=== PATIENT | male | born 1995 | race Two or more races ===

== ENCOUNTER 2025-05-22 20:41 | Inpatient (IN) | payer MEDICAID, OTHER ==
[~2025-05-22] VITALS: Ht 185.4 cm; Wt 88.8 kg
--- NOTE | 2025-05-22 21:08 | ED.PDOC ---
Psychiatric HPI Comments 29 y/o M, with PMHx of substance abuse presents to the ED for CC of withdrawal symptoms. Patient states, he is withdrawing from Fentanyl; reports last usage to have been on 05/16/25. Patient endorses symptoms of body-aches, chills, and auditory hallucinations in relation. Patient denies tremors, nausea, vomiting, abdominal pain, or visual hallucinations. No other symptoms or modifying factors are present at this time. Chief Complaint: Withdrawal Time Seen by MD: 21:00 Reviewed Notes: Nurses Notes, Medications, Allergies Information Source: Patient Mode of Arrival: Ambulatory Severity of Pain: None Severity of Mental Status: Moderate Severity of Symptoms: Moderate Timing: Days Duration: Since onset Circumstance: Withdrawal Symptoms Current substance abuse: Other (fentanyl) Quality: Hallucinations Associated signs and symptoms: Hallucinations Past Medical History PAST MEDICAL HISTORY: Denies Surgical History: Denies all surgeries Family History Family History: Unknown Social History Smoker: Non-Smoker Alcohol: Denies ETOH Use Drugs: Other (fentanyl) Lives In: Home Constitutional: reports: chills; denies: diaphoresis, fatigue, fever, malaise, sweats, weakness, others EENTM: denies: blurred vision, double vision, ear bleeding, ear discharge, ear drainage, ear pain, ear ringing, eye pain, eye redness, hearing loss, mouth pain, mouth swelling, nasal discharge, nose bleeding, nose congestion, nose pain, photophobia, tearing, throat pain, throat swelling, voice changes, others Respiratory: denies: cough, hemoptysis, orthopnea, SOB at rest, shortness of breath, SOB with excertion, stridor, wheezing, others Cardiovascular: denies: chest pain, dizzy spells, diaphoresis, Dyspnea on exertion, edema, irregular heart beat, left arm pain, lightheadedness, palpitations, PND, syncope, others Gastrointestinal: denies: abdomen distended, abdominal pain, blood streaked bowels, constipated, diarrhea, dysphagia, difficulty swallowing, hematemesis, melena, nausea, poor appetite, poor fluid intake, rectal bleeding, rectal pain, vomiting, others Genitourinary: denies: burning, dysuria, flank pain, frequency, hematuria, incontinence, penile discharge, penile sore, pain, testicle pain, testicle swelling, urgency, others Neurological: denies: dizziness, fainting, headache, left sided numbness, left sided weakness, numbness, paresthesia, pre-existing deficit, right sided numbness, right sided weakness, seizure, speech problems, tingling, tremors, weakness, others Musculoskeletal: reports: others (body-aches); denies: back pain, gout, joint pain, joint swelling, muscle pain, muscle stiffness, neck pain Integumetry: denies: bruises, change in color, change in hair/nails, dryness, laceration, lesions, lumps, rash, wounds, others Allergic/Immunocompromised: denies: Difficulty Healing, Frequent Infections, Hives, Itching, others Hematologic/Lymphatic: denies: anemia, blood clots, easy bleeding, easy bruising, swollen glands, others Endocrine: denies: excessive hunger, excessive sweating, excessive thirst, excessive urination, flushing, intolerance to cold, intolerance to heat, unex plained weight gain, unexplained weight loss, others Psychiatric: denies: anxiety, bipolar disorder, depression, hopeless, panic disorder, schizophrenia, sleepless, suicidal, others All Other Systems: Reviewed and Negative Physical Exam General Appearance: No Apparent Distress, Other (anxious appearing) HEENT: Normal ENT Inspection, Pharynx Normal Neck: Full Range of Motion, Non-Tender, Normal, Normal Inspection Respiratory: Chest Non-Tender, Lungs Clear, No Accessory Muscle Use, No Respiratory Distress, Normal Breath Sounds Cardiovascular: No Edema, No Murmur, No Gallop, Normal Peripheral Pulses, Tachycardia Breast Exam: Deferred Gastrointestinal: No Organomegaly, Non Tender, No Pulsatile Mass, Normal Bowel Sounds, Soft Genitalia: Deferred Pelvic: Deferred Rectal: Deferred Extremities: No calf tenderness, Normal capillary refill, Normal inspection, Normal range of motion, Non-tender, No pedal edema Musculoskeletal : Apperance: Normal Neurologic: Alert, 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 Was a procedure done?: No Psych Differential Dx OD Differential Dx: Drug Overdose Intoxication Differential Dx: Other (substance abuse withdrawal) X-Ray, Labs, Meds, VS Vital Signs Date Time Temp Pulse Resp B/P (MAP) Pulse Ox O2 Delivery O2 Flow Rate FiO2 12/18/25 22:49 98.5 87 20 121/73 (89) 98 98.5 05/22/25 20:43 98.5 117 16 134/84 97 98.5 Lab Test 05/22/25 22:01 05/22/25 21:22 Range/Units Urine Color Yellow Yellow Urine Clarity Clear Clear Urine pH 6.0 5.0-9.0 Urine Specific [place] 1.041 H 1.001-1.035 Urine Protein 1+ H Negative Urine Ketones 1+ H Negative Urine Blood Negative Negative /uL Urine Nitrite Negative Negative Urine Bilirubin Negative Negative Urine Urobilinogen 2 H Negative mg/dL Urine Leukocyte Esterase Trace Negative /uL Urine RBC 5 0 - 3 /hpf Urine Microscopic WBC 2 0-3 /HPF Urine Squamous Epithelial Cells None seen <5 /hpf Urine Calcium Oxalate Crystals Few None Seen Urine Bacteria None seen None Seen /hpf Urine Mucus Few None Seen Urine Glucose Normal Normal mg/dL Urine Opiates Screen Neg NEGATIVE Urine Fentanyl Screen Pos NEGATIVE Urine Barbiturates Screen Neg NEGATIVE Urine Phencyclidine Screen Neg NEGATIVE Urine Amphetamines Screen Neg NEGATIVE Urine Benzodiazepines Screen Neg NEGATIVE Urine Cocaine Screen Neg NEGATIVE Urine Cannabinoids Screen Pos NEGATIVE Influenza Type A Antigen Pending Influenza Type B Antigen Pending SARS-CoV-2 Antigen (Rapid) Pending White Blood Count 13.3 H 4.4-10.8 10^3/uL Red Blood Count 4.97 4.5-5.90 10^6/uL Hemoglobin 15.3 13.5-17.5 g/dL Hematocrit 45.4 41.0-53.0 % Mean Corpuscular Volume 91.3 80.0-100.0 fL Mean Corpuscular Hemoglobin 30.8 28.0-32.0 pg Mean Corpuscular Hemoglobin Concent 33.8 32.0-36.0 g/dL Red Cell Distribution Width 13.9 11.8-14.3 % Platelet Count 356 140-450 10^3/uL Mean Platelet Volume 7.8 6.9-10.8 fL Neutrophils (%) (Auto) 54.8 37.0-80.0 % Lymphocytes (%) (Auto) 27.1 10.0-50.0 % Monocytes (%) (Auto) 13.5 H 0.0-12.0 % Eosinophils (%) (Auto) 3.2 0.0-7.0 % Basophils (%) (Auto) 1.4 0.0-2.0 % Neutrophils # (Auto) 7.3 1.6-8.6 10 ^3/uL Lymphocytes # (Auto) 3.6 0.4-5.4 10 ^3/uL Monocytes # (Auto) 1.8 H 0-1.3 10 ^3/uL Eosinophils # (Auto) 0.4 0-0.8 10 ^3/uL Basophils # (Auto) 0.2 0-0.2 10 ^3/uL Nucleated Red Blood Cells 0.0 % Sodium Level 145 136-145 mmol/L Potassium Level 4.5 3.5-5.1 mmol/L Chloride Level 107 98-107 mmol/L Carbon Dioxide Level 27 20-31 mmol/L Anion Gap 11 5-15 Blood Urea Nitrogen 10 9-23 mg/dL Creatinine 1.13 0.700-1.30 mg/dL Glomerular Filtration Rate Calc 90 >90 mL/min BUN/Creatinine Ratio 8.8 L 10.0-20.0 Serum Glucose 140 H 74-106 mg/dL Calcium Level 10.1 8.7-10.4 mg/dL Total Bilirubin 0.2 0.2-1.0 mg/dL Aspartate Amino Transferase (AST) 17 13-40 U/L Alanine Aminotransferase (ALT) 23 7-40 U/L Alkaline Phosphatase 116 46-116 U/L Total Protein 7.4 5.7-8.2 g/dL Albumin 4.5 3.2-4.8 g/dL Plasma/Serum Blood Alcohol < 3.0 <10 mg/dL X-Ray, Labs, Meds, VS Comment Patient will be admitted for fentanyl withdrawal symptoms Imaging was reviewed by this provider, there is no obvious pathological or acute disease process. Pending radiology review Labs were reviewed by this provider, no abnormalities Vital signs reviewed by this provider, clinically stable Time of 1ST Reevaluation: 21:30 Reevaluation 1ST: Unchanged Patient Education/Counseling: Diagnosis, Treatment Family Education/Counseling: No Family Present Departure 1 Departure Time of Disposition: 23:05 Impression: Primary Impression: Opiate withdrawal Disposition: ADMITTED INPATIENT Condition: Stable Discharged With: Self Critical Care Note Critical Care Time?: No Stability Stability form required: No Heart Score Heart Score: Heart Score Response (Comments) Value History N/A 0 EKG N/A 0 Age N/A 0 Risk Factors N/A 0 Troponin N/A 0 Total 0 I personally scribed for REHAN HARRIS ([email or web address]) on 05/22/25 at 21:08. Electronically submitted by Mohini Lamar ([email or web address]). REHAN HARRIS May 22, 2025 21:08
[2025-05-22 21:30] LABS: Hematocrit 45.4 % (41.0-53.0); Hemoglobin 15.3 g/dL (13.5-17.5); Mean Corpuscular Hemoglobin 30.8 pg (28.0-32.0); Mean Corpuscular Volume 91.3 fL (80.0-100.0); Nucleated Red Blood Cells % 0.0 %
[2025-05-22 21:43] LABS: Alanine Aminotransferase 23 U/L (7-40); Albumin 4.5 g/dL (3.2-4.8); Alkaline Phosphatase 116 U/L (46-116); Anion Gap 11 (5-15); BUN/Creatinine Ratio 8.8 (10.0-20.0); Blood Urea Nitrogen 10 mg/dL (9-23); Calcium 10.1 mg/dL (8.7-10.4); Carbon Dioxide 27 mmol/L (20-31); Potassium 4.5 mmol/L (3.5-5.1); Sodium 145 mmol/L (136-145); Total Protein 7.4 g/dL (5.7-8.2)
[2025-05-22 22:49] LABS: Bilirubin, Total 0.2 mg/dL (0.2-1.0); Chloride 107 mmol/L (98-107); Glucose 140 mg/dL (74-106)
[2025-05-22 22:52] LABS: Amphetamine Screen, Urine Neg (NEGATIVE)
[2025-05-22 22:53] LABS: Barbiturate Scree,Urine Neg (NEGATIVE); Benzodiazephine Screen, Urine Neg (NEGATIVE); Cannabinoid Screen, Urine Pos (NEGATIVE); Cocaine Screen, Urine Neg (NEGATIVE); Opiate Scree,Urine Neg (NEGATIVE); Phencyclidine Screen, Urine Neg (NEGATIVE)
[2025-05-22 22:59] LABS: Urine Protein, UAD 1+ (Negative)
[2025-05-22 23:09] LABS: COVID19 ANTIGEN SOFIA FIA NEGATIVE (NEGATIVE)
[2025-05-22] MEDS ORDERED: ONDANSETRON HCL 4 MG/2 ML VIAL IV PRN (23:30)
[2025-05-23] VITALS (8 sets, daily range): BP systolic 118–133; BP diastolic 71–96; PULSE 72–104; RESP 17–22; TEMP 97.5–98.5; O2SAT 96–100
[2025-05-23] MEDS ORDERED: KETOROLAC TROMETH 30 MG/ML 1ML VIAL IV PRN
[2025-05-23] MEDS ORDERED: LOPERAMIDE HCL 2 MG CAP/TAB PO PRN
--- NOTE | 2025-05-23 00:11 | DVHHPRES ---
History of Present Illness Resident Creating Document: GRIFFIN BENNETT RESIDENT History of Present Illness Patient is a 31-year-old male with past medical history of asthma, and multiple drug abuser who came to the ED with chief complaints of nausea and generalized body pain. Pain is 10/10 in intensity and mostly in his upper and lower extremities. He also reports fever, chills, hallucinations, and insomnia says that he has not slept since Monday. Patient reports of fentanyl use, his last fentanyl use was on 05/16. Patient denies any vomiting, diarrhea, abdominal pain, tremors, shortness of the breath, chest pain, dizziness, blurry vision, trauma. PMHx:Asthma PSHx: denies Family history: reviewed, noncontributory Social history: vapes, denies alcohol use, uses fentanyl since 2020, smokes marijuana Home medication: albuterol inhaler Allergic history: denies Patient seen in the lobby. Patient complains of generalized pain mostly in his legs. Denies any nausea, vomiting, diarrhea, dizziness, shortness of breath, chest pain at this time. Review of Systems Constitutional: Yes: Fever, Chills, Sweats, Weakness; No: Malaise, Other Eyes: No: Pain, Vision change, Conjunctivae inflammation, Eyelid inflammation, Other, Redness ENT: No: Ear pain, Ear discharge, Nose pain, Nose discharge, Nose congestion, Mouth pain, Mouth swelling, Throat pain, Throat swelling, Other Respiratory: No: Cough, Dry, Shortness of breath, SOB with excertion, Wheezing, Hemoptysis, Pleuritic Pain, Sputum, Wheezing, Other Cardiovascular: No: Chest Pain, Palpitations, Orthopnea, Paroxysmal Noc. Dyspnea, Edema, Lt Headedness, Other Gastrointestinal: Nausea; No: Vomiting, Abdominal Pain, Diarrhea, Constipation, Melena, Hematochezia, Other Genitourinary: No Dysuria, No Frequency, No Incontinence, No Hematuria, No Retention, No Other Musculoskeletal: other (Generalized body pains); No: neck pain, shoulder pain, arm pain, back pain, hand pain, leg pain, foot pain Skin: No: Rash, Lesions, Jaundice, Bruising, Other Neurological: No: Weakness, Numbness, Incoordination, Change in speech, Confusion, Seizures, Other Allergies: Coded Allergies: No Known Drug Allergy (Verified Allergy, Unknown, 12/18/25) Medications Current Medications Medications Dose Ordered Sig/Kusum Route Start Time Stop Time Status Last Admin Dose Admin Ondansetron HCl 4 mg Q4HP PRN IV 05/22/25 23:30 Acetaminophen 650 mg Q6HR PO 05/23/25 00:00 Exam Vital Signs Vital Signs Date Time Temp Pulse Resp B/P (MAP) Pulse Ox O2 Delivery O2 Flow Rate FiO2 05/22/25 22:49 98.5 87 20 121/73 (89) 98 98.5 Exam General: Patient alert and oriented in person, place and time. Patient following commands. In moderate distress, generalized body pain HEENT: Normocephalic, atraumatic, moist mucous membranes Respiratory/pulmonary: Clear lungs bilaterally, vesicular murmurs present in almost all lung samayoa, no associated crackles or wheezes. Cardiovascular: Normal heart sounds S1 and S2 with no associated murmurs Abdomen: Abdomen nondistended, there is no pain to palpation in any of the abdominal quadrants, no palpable masses. Extremities: There is no peripheral edema present at the lower extremities. bilateral leg tenderness Peripheral Pulses: 3+ Radial (R). 3+ Radial (L). 3+ Dorsalis pedis (R). 3+ Dorsalis pedis(L) Skin: No rashes or pruritus, there is no sacral edema present at this time. Neurological: Intact cranial nerves with no focal neurologic deficits Labs/Xrays Labs Test 05/22/25 22:01 05/22/25 21:22 Range/Units Urine Color Yellow Yellow Urine Clarity Clear Clear Urine pH 6.0 5.0-9.0 Urine Specific [place] 1.041 H 1.001-1.035 Urine Protein 1+ H Negative Urine Ketones 1+ H Negative Urine Blood Negative Negative /uL Urine Nitrite Negative Negative Urine Bilirubin Negative Negative Urine Urobilinogen 2 H Negative mg/dL Urine Leukocyte Esterase Trace Negative /uL Urine RBC 5 0 - 3 /hpf Urine Microscopic WBC 2 0-3 /HPF Urine Squamous Epithelial Cells None seen <5 /hpf Urine Calcium Oxalate Crystals Few None Seen Urine Bacteria None seen None Seen /hpf Urine Mucus Few None Seen Urine Glucose Normal Normal mg/dL Urine Opiates Screen Neg NEGATIVE Urine Fentanyl Screen Pos NEGATIVE Urine Barbiturates Screen Neg NEGATIVE Urine Phencyclidine Screen Neg NEGATIVE Urine Amphetamines Screen Neg NEGATIVE Urine Benzodiazepines Screen Neg NEGATIVE Urine Cocaine Screen Neg NEGATIVE Urine Cannabinoids Screen Pos NEGATIVE Influenza Type A Antigen Negative Negative Influenza Type B Antigen Negative Negative SARS-CoV-2 Antigen (Rapid) Negative NEGATIVE White Blood Count 13.3 H 4.4-10.8 10^3/uL Red Blood Count 4.97 4.5-5.90 10^6/uL Hemoglobin 15.3 13.5-17.5 g/dL Hematocrit 45.4 41.0-53.0 % Mean Corpuscular Volume 91.3 80.0-100.0 fL Mean Corpuscular Hemoglobin 30.8 28.0-32.0 pg Mean Corpuscular Hemoglobin Concent 33.8 32.0-36.0 g/dL Red Cell Distribution Width 13.9 11.8-14.3 % Platelet Count 356 140-450 10^3/uL Mean Platelet Volume 7.8 6.9-10.8 fL Neutrophils (%) (Auto) 54.8 37.0-80.0 % Lymphocytes (%) (Auto) 27.1 10.0-50.0 % Monocytes (%) (Auto) 13.5 H 0.0-12.0 % Eosinophils (%) (Auto) 3.2 0.0-7.0 % Basophils (%) (Auto) 1.4 0.0-2.0 % Neutrophils # (Auto) 7.3 1.6-8.6 10 ^3/uL Lymphocytes # (Auto) 3.6 0.4-5.4 10 ^3/uL Monocytes # (Auto) 1.8 H 0-1.3 10 ^3/uL Eosinophils # (Auto) 0.4 0-0.8 10 ^3/uL Basophils # (Auto) 0.2 0-0.2 10 ^3/uL Nucleated Red Blood Cells 0.0 % Sodium Level 145 136-145 mmol/L Potassium Level 4.5 3.5-5.1 mmol/L Chloride Level 107 98-107 mmol/L Carbon Dioxide Level 27 20-31 mmol/L Anion Gap 11 5-15 Blood Urea Nitrogen 10 9-23 mg/dL Creatinine 1.13 0.700-1.30 mg/dL Glomerular Filtration Rate Calc 90 >90 mL/min BUN/Creatinine Ratio 8.8 L 10.0-20.0 Serum Glucose 140 H 74-106 mg/dL Calcium Level 10.1 8.7-10.4 mg/dL Total Bilirubin 0.2 0.2-1.0 mg/dL Aspartate Amino Transferase (AST) 17 13-40 U/L Alanine Aminotransferase (ALT) 23 7-40 U/L Alkaline Phosphatase 116 46-116 U/L Total Protein 7.4 5.7-8.2 g/dL Albumin 4.5 3.2-4.8 g/dL Plasma/Serum Blood Alcohol < 3.0 <10 mg/dL SEPSIS Sepsis Screen Date sepsis recognized/suspect: May 22, 2025 Time Sepsis recognized/suspect: 2045 Recent Procedure: No On Antibiotic Therapy: No Respiratory Rate >20: No Heart Rate >90: No Temp<36 C (96.8 F) or >38.3 C: No SBP <90 or MAP <65 mmHG: No New Acute Mental Status Change: No Is the patient on CPAP, BIPAP,: No Physician Orders Electrocardigram (05/22/25 23:13) Admit (05/22/25 23:29) Code Status (05/22/25:) Ondansetron Hcl (Zofran) (05/22/25 23:30) Complete Blood Count (05/23/25 04:00) Comprehensive Metabolic Panel (05/23/25 04:00) Condition: Serious (05/22/25 23:29) Acetaminophen Tablet (Tylenol Tablet) (05/23/25 00:00) Bedrest With Bathroom Privileg (05/22/25:29) Stat Ekg For Chest Pain (05/22/25 23:29) Notify Md Of Changes From Base (05/22/25 23:29) Shipyard Painter Helper For 24 Hours (05/22/25:29) Emergency Dysrhythmia Protocol (05/22/25:29) Rhythm Strips Once Every Shift (05/22/25 23:29) Chest Xray 1 View (05/22/25 23:51) Electrocardigram (05/22/25 23:51) Troponin-I Hs (05/22/25 23:51) Electrocardigram (05/23/25 00:51) Troponin-I Hs (05/23/25 00:51) Clonidine Hcl Tablet (Catapres Tablet) (05/23/25 00:00) Loperamide Capsule (Imodium Capsule) (05/23/25 00:00) Hydroxyzine Oral (Vistaril Oral) (05/23/25 00:00) Ketorolac Injection (Toradol Injection) (05/23/25 00:00) Tramadol Hcl (Ultram) (05/23/25 00:00) Hemoglobin A1c (05/23/25 00:05) Vital Signs Date Time Temp Pulse Resp B/P (MAP) Pulse Ox O2 Delivery O2 Flow Rate FiO2 05/22/25 22:49 98.5 87 20 121/73 (89) 98 98.5 05/22/25 20:43 98.5 117 16 134/84 97 98.5 Laboratory Tests Test 05/22/25 21:22 White Blood Count 13.3 10^3/uL (4.4-10.8) H Assessment/Plan Assessment/Plan Opiate withdrawal generalized pain due to above Cannabis use disorder leukocytosis - UDS positive for cannabinoids, fentanyl - Toradol - Clonidine - loperamide - Hydroxyzine - Zofran - EKG within normal limit - tropes negative - check Chest x-ray - patient counseled on cessation of cannabis, fentanyl for > 20 minutes - patient wants resources for rehab and is interested to stop use Goals of care addressed with the patient for more than 27 minutes: Full code status Case discussed with Dr. Meier , patient and nurse Plan discussed with: Patient My Orders Orders - GRIFFIN BENNETT RESIDENT Procedure Category Date Status Time Admit ADMIT 05/22/25 Transmitted 23:29 Code Status CODE 05/22/25 Transmitted 23:29 Ondansetron Hcl PHA 05/22/25 In Process (Zofran) 23:30 Complete Blood Count LAB 05/23/25 Logged 04:00 Comprehensive LAB 05/23/25 Logged Metabolic Panel 04:00 Condition: Serious RICARDO 05/22/25 In Process 23:29 Acetaminophen Tablet PHA 05/23/25 In Process (Tylenol Tablet) 00:00 Bedrest With Bathroom RICARDO 05/22/25 In Process Privileg 23:29 Stat Ekg For Chest RICARDO 05/22/25 In Process Pain 23:29 Notify Of Changes RICARDO 05/22/25 In Process From Base 23:29 Shipyard Painter Helper For RICARDO 05/22/25 In Process 24 Hours 23:29 Emergency Dysrhythmia RICARDO 05/22/25 In Process Protocol 23:29 Rhythm Strips Once [facility] 05/22/25 In Process Every Shift 23:29 Chest Xray 1 View XY 05/22/25 Logged 23:51 Electrocardigram EKG 05/22/25 Logged 23:51 Troponin-I Hs LAB 05/22/25 In Process 23:51 Electrocardigram EKG 05/23/25 Logged 00:51 Troponin-I Hs LAB 05/23/25 Logged 00:51 Clonidine Hcl Tablet PHA 05/23/25 In Process (Catapres Tablet) 00:00 Loperamide Capsule PHA 05/23/25 In Process (Imodium Capsule) 00:00 Hydroxyzine Oral PHA 05/23/25 In Process (Vistaril Oral) 00:00 Ketorolac Injection PHA 05/23/25 In Process (Toradol Injection) 00:00 Tramadol Hcl (Ultram) PHA 05/23/25 In Process 00:00 Hemoglobin A1c LAB 05/23/25 Logged 00:05 Visit Coding STANDARD RES Billing Provider: WILLIE MEIER MD Date of Service if different f: May 22, 2025 Common Visit Codes: 72545-[id number] INP/OBS CARE (HIGH) Secondary Visit Codes: 40985-[id number] CARE PLAN 30 MINUTES GRIFFIN BENNETT May 23, 2025 00:11
--- NOTE | 2025-05-23 00:40 | DVH ---
CHEST RADIOGRAPH INDICATION: r/o lung disease TECHNIQUE: Single frontal view of the chest was obtained COMPARISON: None FINDINGS: Lines and Tubes: None Lungs: Clear Pleura: No effusion. No pneumothorax. Cardiomediastinal contours: Unremarkable Bones: Unremarkable IMPRESSION: 1. No acute disease.
[2025-05-23] MEDS: KETOROLAC TROMETH 30 MG/ML 1ML VIAL IV ONE (00:55)
[2025-05-23] MEDS: ACETAMINOPHEN 325 MG TAB PO SCH (00:55)
[2025-05-23] MEDS: hydrOXYzine HCL 10 MG TAB PO ONE (00:56)
--- NOTE | 2025-05-23 01:17 | ECG ---
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
[2025-05-23 07:44] LABS: Hematocrit 42.9 % (41.0-53.0); Hemoglobin 14.4 g/dL (13.5-17.5); Mean Corpuscular Hemoglobin 30.4 pg (28.0-32.0); Mean Corpuscular Volume 90.7 fL (80.0-100.0); Nucleated Red Blood Cells % 0.0 %
[2025-05-23 08:00] LABS: INR 0.97 (0.9-1.15); Partial Thromboplastin Time 27.3 SEC (24.5-34.5); Prothrombin Time 10.3 sec (9.3-11.8)
[2025-05-23 08:03] LABS: Alanine Aminotransferase 21 U/L (7-40); Albumin 4.0 g/dL (3.2-4.8); Alkaline Phosphatase 102 U/L (46-116); Anion Gap 9 (5-15); BUN/Creatinine Ratio 10.2 (10.0-20.0); Blood Urea Nitrogen 11 mg/dL (9-23); Calcium 9.6 mg/dL (8.7-10.4); Carbon Dioxide 29 mmol/L (20-31); Chloride 107 mmol/L (98-107); Glucose 98 mg/dL (74-106); Magnesium 2.0 mg/dL (1.6-2.6); Potassium 4.7 mmol/L (3.5-5.1); Sodium 145 mmol/L (136-145); Total Protein 6.8 g/dL (5.7-8.2)
[2025-05-23 08:05] LABS: Bilirubin, Total 0.2 mg/dL (0.2-1.0)
[2025-05-23] MEDS: hydrOXYzine HCL 10 MG TAB PO PRN (09:55)
[2025-05-23] MEDS: SODIUM CHLORIDE 0.9% 1,000 ML IV SCH (09:55)
--- NOTE | 2025-05-23 10:22 | DVHPNRES ---
Progress Note Date Seen: May 23, 2025 Resident Creating Document: AISSATOU HOUSER RESIDENT Has the PT tested + for MRSA If YES, has PT been informed?: No Medical Necessity Reason Pt with a Central, PICC or Fol: No Subjective Review of Systems Mr. Arnaldo Cotton is a 29-year-old male, with past medical history of childhood asthma and multiple drug user. The patient came to the [facility] with the chief complaints of 3 days generalized body aches, 10/10 in intensity and mostly in his upper and lower extremities, associated with of progressively worsen flu like symptoms, fever, chills, hallucinations, anxiety and insomnia, the patient reports that he has not slept since Monday. On further questioning, the patient reports of fentanyl use, his last fentanyl use was on 05/16/25. Patient denies any vomiting, diarrhea, abdominal pain, tremors, shortness of the breath, chest pain, dizziness, blurry vision, trauma or other symptoms. The patient reported he had these symptoms before after multiples attempts on quitting fentanyl. He currently lives on a rehabilitation center. The patient reported his symptoms worsen, this prompted his visit to the ED. In the ED was found tachycardia and anxious. The patient was admitted for further assessment and management. PMHx:Childhood Asthma PSHx: denies Family history: reviewed, noncontributory Social history: vapes, denies alcohol use, uses fentanyl since 2020, smokes marijuana Home medication: albuterol inhaler Allergic history: denies Hospital course: The patient seen and eliminated at bedside. Vital signs labs and chart was reviewed. the patient complainsis still complaining of generalized muscular pain mostly in his legs. The UDS was positive for fentanyl and marijuana. Patient continue with IV fluids, symptomatic treatment. COWSscore is 15 at this time. We will continue monitoring the progress of this patient. ROS: Constitutional: Yes: Fever, Chills, Sweats, Weakness; No: Malaise, Other Eyes: No: Pain, Vision change, Conjunctivae inflammation, Eyelid inflammation, Other, Redness ENT: No: Ear pain, Ear discharge, Nose pain, Nose discharge, Nose congestion, Mouth pain, Mouth swelling, Throat pain, Throat swelling, Other Respiratory: No: Cough, Dry, Shortness of breath, SOB with excertion, Wheezing, Hemoptysis, Pleuritic Pain, Sputum, Wheezing, Other Cardiovascular: No: Chest Pain, Palpitations, Orthopnea, Paroxysmal Noc. Dyspnea, Edema, Lt Headedness, Other Gastrointestinal: Nausea; No: Vomiting, Abdominal Pain, Diarrhea, Constipation, Melena, Hematochezia, Other Genitourinary: No Dysuria, No Frequency, No Incontinence, No Hematuria, No Retention, No Other Musculoskeletal: other (Generalized body pains); No: neck pain, shoulder pain, arm pain, back pain, hand pain, leg pain, foot pain Skin: No: Rash, Lesions, Jaundice, Bruising, Other Neurological: No: Weakness, Numbness, Incoordination, Change in speech, Confusion, Seizures, Other Allergies: Objective vital signs Vital Sign Date Time Temp Pulse Resp B/P (MAP) Pulse Ox O2 Delivery O2 Flow Rate FiO2 05/23/25 09:00 98.3 104 22 120/72 (88) 100 98.3 05/23/25 08:00 Room Air* 0 21 Total Intake and Output 05/22/25 05/22/25 05/23/25 15:00 23:00 07:00 Intake Total 400 ml Output Total 800 ml Balance -400 ml medications Current Medications Medications Dose Ordered Sig/Kusum Route Start Time Stop Time Status Last Admin Dose Admin Ondansetron HCl 4 mg Q4HP PRN IV 05/22/25 23:30 Acetaminophen 650 mg Q6HR PO 05/23/25 00:00 05/23/25 05:54 650 MG Clonidine HCl 0.1 mg Q4HP PRN PO 05/23/25 00:00 Loperamide HCl 2 mg PRN PRN PO 05/23/25 00:00 Hydroxyzine HCl 10 mg Q6HP PRN PO 05/23/25 00:00 05/23/25 09:55 10 MG Ketorolac Tromethamine 15 mg Q6HPRN PRN IV 05/23/25 00:00 05/28/25 00:00 Tramadol HCl 50 mg Q4HP PRN PO 05/23/25 00:00 05/23/25 09:54 50 MG Sodium Chloride 1,000 ml @ 100 mls/hr Q10H IV 05/23/25 07:30 05/23/25 09:55 100 MLS/HR Examination General: Patient alert and oriented in person, place and time. Patient following commands. In moderate distress, generalized body pain HEENT: Normocephalic, atraumatic, moist mucous membranes Respiratory/pulmonary: Clear lungs bilaterally, vesicular murmurs present in almost all lung samayoa, no associated crackles or wheezes. Cardiovascular: Normal heart sounds S1 and S2 with no associated murmurs Abdomen: Abdomen nondistended, there is no pain to palpation in any of the abdominal quadrants, no palpable masses. Extremities: There is no peripheral edema present at the lower extremities. bilateral leg tenderness Peripheral Pulses: 3+ Radial (R). 3+ Radial (L). 3+ Dorsalis pedis (R). 3+ Dorsalis pedis(L) Skin: No rashes or pruritus, there is no sacral edema present at this time. Neurological: Intact cranial nerves with no focal neurologic deficits laboratory and microbiology Laboratory Tests 05/23/25 07:10 Test 05/23/25 07:10 Range/Units Serum Glucose 98 74-106 mg/dL Problem List/Assessment/Plan Problem List/Assessment/Plan #Acute Opiate withdrawal likely fentanyl #Chronic Poly-subtance Abuse #Acute Generalized intractable body aches due to above COWS: 15 points - UDS positive for cannabinoids, fentanyl - Toradol - Clonidine - loperamide - Hydroxyzine - Zofran - EKG within normal limit - tropes negative - check Chest x-ray - patient counseled on cessation of cannabis, fentanyl for > 20 minutes - patient wants resources for rehab and is interested to stop use #Chronic Asthma without exacerbation -Albuterol prn #Chronic Vit D deficiency VIt D 50,000 IU Diet Regular DVT prophylaxis: SCD GI prophylaxis Protonix Code status: full code Disposition: [facility] PCP: No established, d/c clinic upon discharge Patient's status and plan discussed with the patient >30min. Case discussed with Dr. Powers Plan discussed with: Patient Visit Coding STANDARD RES Billing Provider: GLENDY GUIDO MD Date of Service if different f: May 23, 2025 Common Visit Codes: [id number] INP/OBS CARE(HIGH) [place] RESIDENT May 23, 2025 10:22
[2025-05-23] MEDS: ERGOCALCIFEROL 50,000 UNIT(1.25MG) CAP PO SCH (12:12)
[2025-05-23] MEDS: LORazepam 0.5 MG TAB PO PRN (12:12)
[2025-05-23 12:38] LABS: Hepatitis B Surface Antigen Negative (Negative)
[2025-05-23 13:00] LABS: Hepatitis C Antibody Negative (Negative)
--- NOTE | 2025-05-23 14:13 | DVHINCON2 ---
Date of Service if different f: May 23, 2025 Time of Service: 13:01 Consultation ([facility]) Progress: Better Labs Laboratory Tests Test 05/22/25 21:22 05/22/25 22:01 05/23/25 00:14 05/23/25 07:10 Plasma/Serum Blood Alcohol < 3.0 mg/dL (<10) Urine Color Yellow (Yellow) Urine Clarity Clear (Clear) Urine pH 6.0 (5.0-9.0) Urine Specific [place] 1.041 (1.001-1.035) Urine Protein 1+ (Negative) Urine Ketones 1+ (Negative) Urine Blood Negative /uL (Negative) Urine Nitrite Negative (Negative) Urine Bilirubin Negative (Negative) Urine Urobilinogen 2 mg/dL (Negative) Urine Leukocyte Esterase Trace /uL (Negative) Urine RBC 5 /hpf (0 - 3) Urine Microscopic WBC 2 /HPF (0-3) Urine Squamous Epithelial Cells None seen /hpf (<5) Urine Calcium Oxalate Crystals Few (None Seen) Urine Bacteria None seen /hpf (None Seen) Urine Mucus Few (None Seen) Urine Glucose Normal mg/dL (Normal) Urine Opiates Screen Neg (NEGATIVE) Urine Fentanyl Screen Pos (NEGATIVE) Urine Barbiturates Screen Neg (NEGATIVE) Urine Phencyclidine Screen Neg (NEGATIVE) Urine Amphetamines Screen Neg (NEGATIVE) Urine Benzodiazepines Screen Neg (NEGATIVE) Urine Cocaine Screen Neg (NEGATIVE) Urine Cannabinoids Screen Pos (NEGATIVE) Influenza Type A Antigen Negative (Negative) Influenza Type B Antigen Negative (Negative) SARS-CoV-2 Antigen (Rapid) Negative (NEGATIVE) Troponin I High Sensitivity < 3 ng/L (</=54) White Blood Count 11.8 10^3/uL (4.4-10.8) Red Blood Count 4.73 10^6/uL (4.5-5.90) Hemoglobin 14.4 g/dL (13.5-17.5) Hematocrit 42.9 % (41.0-53.0) Mean Corpuscular Volume 90.7 fL (80.0-100.0) Mean Corpuscular Hemoglobin 30.4 pg (28.0-32.0) Mean Corpuscular Hemoglobin Concent 33.5 g/dL (32.0-36.0) Red Cell Distribution Width 13.7 % (11.8-14.3) Platelet Count 318 10^3/uL (140-450) Mean Platelet Volume 8.0 fL (6.9-10.8) Neutrophils (%) (Auto) 55.2 % (37.0-80.0) Lymphocytes (%) (Auto) 26.5 % (10.0-50.0) Monocytes (%) (Auto) 13.5 % (0.0-12.0) Eosinophils (%) (Auto) 4.3 % (0.0-7.0) Basophils (%) (Auto) 0.5 % (0.0-2.0) Neutrophils # (Auto) 6.5 10 ^3/uL (1.6-8.6) Lymphocytes # (Auto) 3.1 10 ^3/uL (0.4-5.4) Monocytes # (Auto) 1.6 10 ^3/uL (0-1.3) Eosinophils # (Auto) 0.5 10 ^3/uL (0-0.8) Basophils # (Auto) 0.1 10 ^3/uL (0-0.2) Nucleated Red Blood Cells 0.0 % Prothrombin Time 10.3 sec (9.3-11.8) Prothromb Time International Ratio 0.97 (0.9-1.15) Activated Partial Thromboplast Time 27.3 SEC (24.5-34.5) Sodium Level 145 mmol/L (136-145) Potassium Level 4.7 mmol/L (3.5-5.1) Chloride Level 107 mmol/L (98-107) Carbon Dioxide Level 29 mmol/L (20-31) Anion Gap 9 (5-15) Blood Urea Nitrogen 11 mg/dL (9-23) Creatinine 1.08 mg/dL (0.700-1.30) Glomerular Filtration Rate Calc 95 mL/min (>90) BUN/Creatinine Ratio 10.2 (10.0-20.0) Serum Glucose 98 mg/dL (74-106) Hemoglobin A1c 5.4 % A1C (<5.7) Calcium Level 9.6 mg/dL (8.7-10.4) Magnesium Level 2.0 mg/dL (1.6-2.6) Total Bilirubin 0.2 mg/dL (0.2-1.0) Aspartate Amino Transf (AST/SGOT) 18 U/L (13-40) Alanine Aminotransferase (ALT/SGPT) 21 U/L (7-40) Alkaline Phosphatase 102 U/L (46-116) Creatine Kinase 65 U/L (46-171) Total Protein 6.8 g/dL (5.7-8.2) Albumin 4.0 g/dL (3.2-4.8) Vitamin D 25-Hydroxy 29.0 ng/mL (30.0-100) Thyroid Stimulating Hormone (TSH) 1.91 uIU/mL (0.55-4.78) Hepatitis B Surface Antigen Negative (Negative) Hepatitis C Antibody Negative (Negative) Appetite: Good Side effects of medications: No Side effects of medications: Other Appearance: Stated age Psychomotor activity: WNL Behavioral: Cooperative Eye contact: Appropriate Speech: WNL Affect: Appropriate Thought processes: Linear/Goal-directed Thought content: WNL Suicidal ideations: Present Homicidal ideations: Present Orientation: Person, Place, Time Memory intact: Recent Intellect: Average Abstractability: WNL Concentration: Adequate Attention: Adequate Judgement: WNL Insight: Good Vitals Vital Signs Date Time Temp Pulse Resp B/P (MAP) Pulse Ox O2 Delivery O2 Flow Rate FiO2 05/23/25 13:00 98.5 91 18 133/72 (92) 96 98.5 05/23/25 08:00 Room Air* 0 21 Current medications Current Medications Medications Dose Ordered Sig/Kusum Route Start Time Stop Time Status Last Admin Dose Admin Ondansetron HCl 4 mg Q4HP PRN IV 05/22/25 23:30 Acetaminophen 650 mg Q6HR PO 05/23/25 00:00 05/23/25 12:13 650 MG Clonidine HCl 0.1 mg Q4HP PRN PO 05/23/25 00:00 Loperamide HCl 2 mg PRN PRN PO 05/23/25 00:00 Hydroxyzine HCl 10 mg Q6HP PRN PO 05/23/25 00:00 05/23/25 09:55 10 MG Ketorolac Tromethamine 15 mg Q6HPRN PRN IV 05/23/25 00:00 05/28/25 00:00 Tramadol HCl 50 mg Q4HP PRN PO 05/23/25 00:00 05/23/25 09:54 50 MG Sodium Chloride 1,000 ml @ 100 mls/hr Q10H IV 05/23/25 07:30 05/23/25 09:55 100 MLS/HR Ergocalciferol 50,000 unit Q7D PO 05/23/25 11:00 05/23/25 12:12 50,000 UNIT Lorazepam 1 mg Q6HP PRN PO 05/23/25 11:15 05/23/25 12:12 1 MG Treatment plan discussed: With staff Medication adjusted: Yes Labs ordered: No Psychotherapy provided: No Type: Voluntary The patient is a 29-year-old single male who currently resides in a sober living facility and is unemployed. He has a documented psychiatric history significant for Generalized Anxiety Disorder and Major Depressive Disorder (MDD), with a history of opioid use. His history is notable for a prior 5150, during which he was admitted to the medical floor. The assessment was conducted via the telepsychiatry platform. On evaluation, the patient appeared anxious but cooperative and was appropriately engaged throughout the encounter. He was alert and fully oriented, with no evidence of cognitive impairment. Speech was normal in rate, rhythm, and volume. Thought processes were linear, coherent, and goal-directed, with no flight of ideas or thought blocking. The patient stated that his primary reason for presenting to the Emergency Department and admission was fentanyl withdrawal and severe insomnia. He reported feeling significantly better and expressed a desire to return to his sober living program. He denied suicidal ideation (SI), homicidal ideation (HI), auditory or visual hallucinations (AVH), paranoid ideation, or delusional thinking. He did not exhibit internal preoccupation, distractibility, or signs of responding to internal stimuli. Insight and judgment were assessed as fair. Comprehensive psychoeducation was provided, emphasizing the importance of medication adherence, appropriate dosing, and avoidance of overuse. Potential risksincluding oversedation, impaired concentration, metabolic side effects associated with antipsychotic use, mood destabilization, and relapse riskwere reviewed in detail. The patient was educated on recognizing early warning signs of psychiatric decompensation, including worsening anxiety or depressive symptoms, irritability, mood swings, sleep or appetite disturbances, intrusive thoughts, and reduced coping capacity. The relationship between stress, opioid use, emotional triggers, grief, and symptom exacerbation was discussed. The patient was encouraged to continue utilizing healthy coping strategies, including grounding techniques, structured daily routines, supportive social engagement, and therapeutic activities that promote emotional regulation and stability. Additional counseling was provided regarding sleep hygiene, including maintaining consistent sleepwake schedules, limiting evening stimulants, reducing screen time before bed, and establishing a calming nighttime routine. He was encouraged to continue participation in his recovery program, maintain regular outpatient psychiatric follow-up, and seek prompt assistance if symptoms worsen. The patient demonstrated good understanding of all recommendations and expressed willingness to continue his current medication regimen as prescribed. He appeared motivated to remain engaged in treatment and maintain psychiatric sta bility. At this time, the patient does not present with imminent safety concerns. He endorsed readiness to return to his recovery program with ongoing outpatient psychiatric follow-up. Family History Denies Past Psychiatric History History of anxiety and Major Depressive Disorder History of 5150 History of inpatient psychiatric admission Denies history of suicide attempts Denies history of violence Social / Developmental History Single, never , no children Denies access to firearms or weapons Denies service Denies history of physical, sexual, or emotional abuse History of incarceration) Substance Use History History of fentanyl use. Last use was last Monday ( a week ago) Past Medical History / Allergies No significant medical history Allergies: NKDA Review of Systems As per HPI Otherwise negative across constitutional, ENT, respiratory, cardiovascular, gastrointestinal, musculoskeletal, neurological, and other systems Musculoskeletal / Neurological Examination Normal body habitus Normal muscle strength and tone No spasticity or extrapyramidal symptoms Normal gait and station Mental Status Examination Appearance: Young White Male, evaluated at bedside, no acute distress, fair grooming and hygiene Attitude: Alert and cooperative Eye Contact: Good Psychomotor Activity: No agitation or retardation Orientation: Fully oriented to person, place, and time Mood/Affect: Anxious mood with congruent anxious affect Speech: Normal rate, tone, and volume Cognition: Fair attention; intact recent and remote memory Thought Process: Logical, coherent, linear Thought Content: No hallucinations, delusions, or homicidal ideation Insight/Judgment: Fair History of Present Illness The patient is a 29-year-old single Male who currently llives in a sober and unemployed. He has documented a psychiatric history significant for Generalized Anxiety Disorder and Major Depressive Disorder (MDD. History of opioid use. History of 5150 admitted to the medical floor. . He denied SI, HI, AVH, or psychotic symptoms. he was calm, cooperative, and psychiatrically stable throughout the evaluation, with no evidence of acute decompensation. Legal: Voluntary Diagnosis: Psychiatric: Depressive Disorder Medical: None Plan: Review and reinforce safety plan, coping strategies, and crisis resources Discharge back to the sober house Start Seroquel 100mg po qhs # 15. Risks and benefits were discussed with the pt. Refer for outpatient psychiatric follow-up for continued care. At this time, the patient is psychiatrically stable and appropriate for discharge, with no acute safety concerns identified. Case was discussed with the RN, Awaiting resident call back. SOUMYA ALEXANDER MD May 23, 2025 14:13
[2025-05-24 01:00] VITALS: BP 126/76; PULSE 77; RESP 18; TEMP 97.6; O2SAT 99
[2025-05-24 05:02] VITALS: BP 121/74; PULSE 76; RESP 18; TEMP 97.7; O2SAT 98
[2025-05-24 06:58] LABS: Hematocrit 42.2 % (41.0-53.0); Hemoglobin 14.1 g/dL (13.5-17.5); Mean Corpuscular Hemoglobin 30.5 pg (28.0-32.0); Mean Corpuscular Volume 91.1 fL (80.0-100.0); Nucleated Red Blood Cells % 0.1 %
[2025-05-24 06:59] LABS: Chloride 106 mmol/L (98-107); Potassium 4.3 mmol/L (3.5-5.1); Sodium 141 mmol/L (136-145)
[2025-05-24 07:00] LABS: Anion Gap 9 (5-15); Calcium 9.0 mg/dL (8.7-10.4); Carbon Dioxide 26 mmol/L (20-31)
[2025-05-24 07:05] LABS: Glucose 85 mg/dL (74-106)
[2025-05-24 07:06] LABS: BUN/Creatinine Ratio 11.6 (10.0-20.0); Blood Urea Nitrogen 10 mg/dL (9-23)
[2025-05-24 08:00] VITALS: PULSE 82; RESP 18
[2025-05-24 09:00] VITALS: BP 122/81; PULSE 91; RESP 18; TEMP 97.9; O2SAT 99
[2025-05-24] MEDS ORDERED: PANTOPRAZOLE 40 MG/10 ML VIAL INJ IV SCH (10:00)
[2025-05-24] MEDS ORDERED: IBUP-1453 PO (10:39)
[2025-05-24] MEDS ORDERED: PANT40T PO (10:39)
--- NOTE | 2025-05-24 11:39 | DVHDSRES ---
Discharge Summary Date of Admission Resident Creating Document: VERA VARGHESE RESIDENT May 22, 2025 at 23:29 Date of Discharge: May 24, 2025 Admitting Diagnosis Acute fentanyl withdrawal Labs/Diagnostic Data: Laboratory Results Test 05/24/25 04:27 05/23/25 07:10 05/23/25 00:14 05/22/25 22:01 White Blood Count 10.2 10^3/uL (4.4-10.8) Red Blood Count 4.63 10^6/uL (4.5-5.90) Hemoglobin 14.1 g/dL (13.5-17.5) Hematocrit 42.2 % (41.0-53.0) Mean Corpuscular Volume 91.1 fL (80.0-100.0) Mean Corpuscular Hemoglobin 30.5 pg (28.0-32.0) Mean Corpuscular Hemoglobin Concent 33.5 g/dL (32.0-36.0) Red Cell Distribution Width 13.7 % (11.8-14.3) Platelet Count 283 10^3/uL (140-450) Mean Platelet Volume 8.2 fL (6.9-10.8) Neutrophils (%) (Auto) 42.0 % (37.0-80.0) Lymphocytes (%) (Auto) 44.8 % (10.0-50.0) Monocytes (%) (Auto) 8.8 % (0.0-12.0) Eosinophils (%) (Auto) 3.8 % (0.0-7.0) Basophils (%) (Auto) 0.6 % (0.0-2.0) Neutrophils # (Auto) 4.3 10 ^3/uL (1.6-8.6) Lymphocytes # (Auto) 4.6 10 ^3/uL (0.4-5.4) Monocytes # (Auto) 0.9 10 ^3/uL (0-1.3) Eosinophils # (Auto) 0.4 10 ^3/uL (0-0.8) Basophils # (Auto) 0.1 10 ^3/uL (0-0.2) Nucleated Red Blood Cells 0.1 % Sodium Level 141 mmol/L (136-145) Potassium Level 4.3 mmol/L (3.5-5.1) Chloride Level 106 mmol/L (98-107) Carbon Dioxide Level 26 mmol/L (20-31) Anion Gap 9 (5-15) Blood Urea Nitrogen 10 mg/dL (9-23) Creatinine 0.86 mg/dL (0.700-1.30) Glomerular Filtration Rate Calc 119 mL/min (>90) BUN/Creatinine Ratio 11.6 (10.0-20.0) Serum Glucose 85 mg/dL (74-106) Calcium Level 9.0 mg/dL (8.7-10.4) Prothrombin Time 10.3 sec (9.3-11.8) Prothrombin Time INR 0.97 (0.9-1.15) Activated Partial Thromboplast Time 27.3 SEC (24.5-34.5) Hemoglobin A1c 5.4 % A1C (<5.7) Magnesium Level 2.0 mg/dL (1.6-2.6) Total Bilirubin 0.2 mg/dL (0.2-1.0) Aspartate Amino Transferase (AST) 18 U/L (13-40) Alanine Aminotransferase (ALT) 21 U/L (7-40) Alkaline Phosphatase 102 U/L (46-116) Creatine Kinase 65 U/L (46-171) Total Protein 6.8 g/dL (5.7-8.2) Albumin 4.0 g/dL (3.2-4.8) Vitamin D 25-Hydroxy 29.0 ng/mL (30.0-100) Thyroid Stimulating Hormone (TSH) 1.91 uIU/mL (0.55-4.78) Hepatitis B Surface Antigen Negative (Negative) Hepatitis C Antibody Negative (Negative) Troponin I High Sensitivity < 3 ng/L (</=54) Urine Color Yellow (Yellow) Urine Clarity Clear (Clear) Urine pH 6.0 (5.0-9.0) Urine Specific [place] 1.041 (1.001-1.035) Urine Protein 1+ (Negative) Urine Ketones 1+ (Negative) Urine Blood Negative /uL (Negative) Urine Nitrite Negative (Negative) Urine Bilirubin Negative (Negative) Urine Urobilinogen 2 mg/dL (Negative) Urine Leukocyte Esterase Trace /uL (Negative) Urine RBC 5 /hpf (0 - 3) Urine Microscopic WBC 2 /HPF (0-3) Urine Squamous Epithelial Cells None seen /hpf (<5) Urine Calcium Oxalate Crystals Few (None Seen) Urine Bacteria None seen /hpf (None Seen) Urine Mucus Few (None Seen) Urine Glucose Normal mg/dL (Normal) Urine Opiates Screen Neg (NEGATIVE) Urine Fentanyl Screen Pos (NEGATIVE) Urine Barbiturates Screen Neg (NEGATIVE) Urine Phencyclidine Screen Neg (NEGATIVE) Urine Amphetamines Screen Neg (NEGATIVE) Urine Benzodiazepines Screen Neg (NEGATIVE) Urine Cocaine Screen Neg (NEGATIVE) Urine Cannabinoids Screen Pos (NEGATIVE) Influenza Type A Antigen Negative (Negative) Influenza Type B Antigen Negative (Negative) SARS-CoV-2 Antigen (Rapid) Negative (NEGATIVE) Test 05/22/25 21:22 Plasma/Serum Blood Alcohol < 3.0 mg/dL (<10) Other Laboratory Tests 05/24/25 04:27 Brief Hx & Hospital Course: Mr. Arnaldo Cotton is a 29-year-old male, with past medical history of childhood asthma and multiple drug user. The patient came to the [facility] with the chief complaints of 3 days generalized body aches, 10/10 in intensity and mostly in his upper and lower extremities, associated with of progressively worsen flu like symptoms, fever, chills, hallucinations, anxiety and insomnia, the patient reports that he has not slept since Monday. On further questioning, the patient reports of fentanyl use, his last fentanyl use was on 05/16/25. Patient denies any vomiting, diarrhea, abdominal pain, tremors, shortness of the breath, chest pain, dizziness, blurry vision, trauma or other symptoms. The patient reported he had these symptoms before after multiples attempts on quitting fentanyl. He currently lives on a rehabilitation center. The patient reported his symptoms worsen, this prompted his visit to the ED. In the ED was found tachycardia and anxious. Hospital course-during hospital course patient was seen by Psychiatry diagnosed with depressive disorder, recommended for Seroquel 100 mg p.o. q.h.s.. Also recommended for Psychiatry outpatient follow up. Patient reported doing good today, no acute withdrawal symptoms or sign. Patient was discharged in hemodynamically stable condition. Patient has been to follow up with DC clinic/PCP. Patient was discharged with a quetiapine 100 mg p.o. q.h.s.. Patient was also advised to follow up with the rehab. General: Patient alert and oriented in person, place and time. Patient following commands. In moderate distress, generalized body pain HEENT: Normocephalic, atraumatic, moist mucous membranes Respiratory/pulmonary: Clear lungs bilaterally, vesicular murmurs present in almost all lung samayoa, no associated crackles or wheezes. Cardiovascular: Normal heart sounds S1 and S2 with no associated murmurs Abdomen: Abdomen nondistended, there is no pain to palpation in any of the abdominal quadrants, no palpable masses. Extremities: There is no peripheral edema present at the lower extremities. bilateral leg tenderness Peripheral Pulses: 3+ Radial (R). 3+ Radial (L). 3+ Dorsalis pedis (R). 3+ Dorsalis pedis(L) Skin: No rashes or pruritus, there is no sacral edema present at this time. Neurological: Intact cranial nerves with no focal neurologic deficits Assessment #Acute Opiate withdrawal likely fentanyl #Chronic Poly-subtance Abuse #Acute Generalized intractable body aches due to above # chronic has been with the exacerbation # depressive disorder Plan Continue quetiapine 100 mg p.o. q.h.s. Vitamin-D supplement 67344 units weekly as prescribed Albuterol PRN Please follow up with the DC clinic/PCP Follow up Psychiatry outpatient Follow up rehab Plan of care discussed with Dr. Powers Consults/Reason for consult Patient Name: ONIEL SWEENEY Acct: [id number] Room: 0216 /Bed: B Attending Physician: AISSATOU HOUSER RESIDENT Loc: [facility] Unit: [id number] CONSULTATION REPORT . ................................................................................ ............................................................................... Date of Service if different f: May 23, 2025 Time of Service: 13:01 Consultation ([facility]) Progress: Better Labs Laboratory Tests Test 05/22/25 21:22 05/22/25 22:01 05/23/25 00:14 05/23/25 07:10 Plasma/Serum Blood Alcohol < 3.0 mg/dL (<10) Urine Color Yellow (Yellow) Urine Clarity Clear (Clear) Urine pH 6.0 (5.0-9.0) Urine Specific [place] 1.041 (1.001-1.035) Urine Protein 1+ (Negative) Urine Ketones 1+ (Negative) Urine Blood Negative /uL (Negative) Urine Nitrite Negative (Negative) Urine Bilirubin Negative (Negative) Urine Urobilinogen 2 mg/dL (Negative) Urine Leukocyte Esterase Trace /uL (Negative) Urine RBC 5 /hpf (0 - 3) Urine Microscopic WBC 2 /HPF (0-3) Urine Squamous Epithelial Cells None seen /hpf (<5) Urine Calcium Oxalate Crystals Few (None Seen) Urine Bacteria None seen /hpf (None Seen) Urine Mucus Few (None Seen) Urine Glucose Normal mg/dL (Normal) Urine Opiates Screen Neg (NEGATIVE) Urine Fentanyl Screen Pos (NEGATIVE) Urine Barbiturates Screen Neg (NEGATIVE) Urine Phencyclidine Screen Neg (NEGATIVE) Urine Amphetamines Screen Neg (NEGATIVE) Urine Benzodiazepines Screen Neg (NEGATIVE) Urine Cocaine Screen Neg (NEGATIVE) Urine Cannabinoids Screen Pos (NEGATIVE) Influenza Type A Antigen Negative (Negative) Influenza Type B Antigen Negative (Negative) SARS-CoV-2 Antigen (Rapid) Negative (NEGATIVE) Troponin I High Sensitivity < 3 ng/L (</=54) White Blood Count 11.8 10^3/uL (4.4-10.8) Red Blood Count 4.73 10^6/uL (4.5-5.90) Hemoglobin 14.4 g/dL (13.5-17.5) Hematocrit 42.9 % (41.0-53.0) Mean Corpuscular Volume 90.7 fL (80.0-100.0) Mean Corpuscular Hemoglobin 30.4 pg (28.0-32.0) Mean Corpuscular Hemoglobin Concent 33.5 g/dL (32.0-36.0) Red Cell Distribution Width 13.7 % (11.8-14.3) Platelet Count 318 10^3/uL (140-450) Mean Platelet Volume 8.0 fL (6.9-10.8) Neutrophils (%) (Auto) 55.2 % (37.0-80.0) Lymphocytes (%) (Auto) 26.5 % (10.0-50.0) Monocytes (%) (Auto) 13.5 % (0.0-12.0) Eosinophils (%) (Auto) 4.3 % (0.0-7.0) Basophils (%) (Auto) 0.5 % (0.0-2.0) Neutrophils # (Auto) 6.5 10 ^3/uL (1.6-8.6) Lymphocytes # (Auto) 3.1 10 ^3/uL (0.4-5.4) Monocytes # (Auto) 1.6 10 ^3/uL (0-1.3) Eosinophils # (Auto) 0.5 10 ^3/uL (0-0.8) Basophils # (Auto) 0.1 10 ^3/uL (0-0.2) Nucleated Red Blood Cells 0.0 % Prothrombin Time 10.3 sec (9.3-11.8) Prothromb Time International Ratio 0.97 (0.9-1.15) Activated Partial Thromboplast Time 27.3 SEC (24.5-34.5) Sodium Level 145 mmol/L (136-145) Potassium Level 4.7 mmol/L (3.5-5.1) Chloride Level 107 mmol/L (98-107) Carbon Dioxide Level 29 mmol/L (20-31) Anion Gap 9 (5-15) Blood Urea Nitrogen 11 mg/dL (9-23) Creatinine 1.08 mg/dL (0.700-1.30) Glomerular Filtration Rate Calc 95 mL/min (>90) BUN/Creatinine Ratio 10.2 (10.0-20.0) Serum Glucose 98 mg/dL (74-106) Hemoglobin A1c 5.4 % A1C (<5.7) Calcium Level 9.6 mg/dL (8.7-10.4) Magnesium Level 2.0 mg/dL (1.6-2.6) Total Bilirubin 0.2 mg/dL (0.2-1.0) Aspartate Amino Transf (AST/SGOT) 18 U/L (13-40) Alanine Aminotransferase (ALT/SGPT) 21 U/L (7-40) Alkaline Phosphatase 102 U/L (46-116) Creatine Kinase 65 U/L (46-171) Total Protein 6.8 g/dL (5.7-8.2) Albumin 4.0 g/dL (3.2-4.8) Vitamin D 25-Hydroxy 29.0 ng/mL (30.0-100) Thyroid Stimulating Hormone (TSH) 1.91 uIU/mL (0.55-4.78) Hepatitis B Surface Antigen Negative (Negative) Hepatitis C Antibody Negative (Negative) Appetite: Good Side effects of medications: No Side effects of medications: Other Appearance: Stated age Psychomotor activity: WNL Behavioral: Cooperative Eye contact: Appropriate Speech: WNL Affect: Appropriate Thought processes: Linear/Goal-directed Thought content: WNL Suicidal ideations: Present Homicidal ideations: Present Orientation: Person, Place, Time Memory intact: Recent Intellect: Average Abstractability: WNL Concentration: Adequate Attention: Adequate Judgement: WNL Insight: Good Vitals Vital Signs Date Time Temp Pulse Resp B/P (MAP) Pulse Ox O2 Delivery O2 Flow Rate FiO2 05/23/25 13:00 98.5 91 18 133/72 (92) 96 98.5 05/23/25 08:00 Room Air* 0 21 Current medications Current Medications Medications Dose Ordered Sig/Kusum Route Start Time Stop Time Status Last Admin Dose Admin Ondansetron HCl 4 mg Q4HP PRN IV 05/22/25 23:30 Acetaminophen 650 mg Q6HR PO 05/23/25 00:00 05/23/25 12:13 650 MG Clonidine HCl 0.1 mg Q4HP PRN PO 05/23/25 00:00 Loperamide HCl 2 mg PRN PRN PO 05/23/25 00:00 Hydroxyzine HCl 10 mg Q6HP PRN PO 05/23/25 00:00 05/23/25 09:55 10 MG Ketorolac Tromethamine 15 mg Q6HPRN PRN IV 05/23/25 00:00 05/28/25 00:00 Tramadol HCl 50 mg Q4HP PRN PO 05/23/25 00:00 05/23/25 09:54 50 MG Sodium Chloride 1,000 ml @ 100 mls/hr Q10H IV 05/23/25 07:30 05/23/25 09:55 100 MLS/HR Ergocalciferol 50,000 unit Q7D PO 05/23/25 11:00 05/23/25 12:12 50,000 UNIT Lorazepam 1 mg Q6HP PRN PO 05/23/25 11:15 05/23/25 12:12 1 MG Treatment plan discussed: With staff Medication adjusted: Yes Labs ordered: No Psychotherapy provided: No Type: Voluntary The patient is a 29-year-old single male who currently resides in a sober living facility and is unemployed. He has a documented psychiatric history significant for Generalized Anxiety Disorder and Major Depressive Disorder (MDD), with a history of opioid use. His history is notable for a prior 5150, during which he was admitted to the medical floor. The assessment was conducted via the telepsychiatry platform. On evaluation, the patient appeared anxious but cooperative and was appropriately engaged throughout the encounter. He was alert and fully oriented, with no evidence of cognitive impairment. Speech was normal in rate, rhythm, and volume. Thought processes were linear, coherent, and goal-directed, with no flight of ideas or thought blocking. The patient stated that his primary reason for presenting to the Emergency Department and admission was fentanyl withdrawal and severe insomnia. He reported feeling significantly better and expressed a desire to return to his sober living program. He denied suicidal ideation (SI), homicidal ideation (HI), auditory or visual hallucinations (AVH), paranoid ideation, or delusional thinking. He did not exhibit internal preoccupation, distractibility, or signs of responding to internal stimuli. Insight and judgment were assessed as fair. Comprehensive psychoeducation was provided, emphasizing the importance of medication adherence, appropriate dosing, and avoidance of overuse. Potential risksincluding oversedation, impaired concentration, metabolic side effects associated with antipsychotic use, mood destabilization, and relapse riskwere reviewed in detail. The patient was educated on recognizing early warning signs of psychiatric decompensation, including worsening anxiety or depressive symptoms, irritability, mood swings, sleep or appetite disturbances, intrusive thoughts, and reduced coping capacity. The relationship between stress, opioid use, emotional triggers, grief, and symptom exacerbation was discussed. The patient was encouraged to continue utilizing healthy coping strategies, including grounding techniques, structured daily routines, supportive social engagement, and therapeutic activities that promote emotional regulation and stability. Additional counseling was provided regarding sleep hygiene, including maintaining consistent sleepwake schedules, limiting evening stimulants, reducing screen time before bed, and establishing a calming nighttime routine. He was encouraged to continue participation in his recovery program, maintain regular outpatient psychiatric follow-up, and seek prompt assistance if symptoms worsen. The patient demonstrated good understanding of all recommendations and expressed willingness to continue his current medication regimen as prescribed. He appeared motivated to remain engaged in treatment and maintain psychiatric stability. At this time, the patient does not present with imminent safety concerns. He endorsed readiness to return to his recovery program with ongoing outpatient psychiatric follow-up. Family History Denies Past Psychiatric History History of anxiety and Major Depressive Disorder History of 5150 History of inpatient psychiatric admission Denies history of suicide attempts Denies history of violence Social / Developmental History Single, never , no children Denies access to firearms or weapons Denies service Denies history of physical, sexual, or emotional abuse History of incarceration) Substance Use History History of fentanyl use. Last use was last Monday ( a week ago) Past Medical History / Allergies No significant medical history Allergies: NKDA Review of Systems As per HPI Otherwise negative across constitutional, ENT, respiratory, cardiovascular, gastrointestinal, musculoskeletal, neurological, and other systems Musculoskeletal / Neurological Examination Normal body habitus Normal muscle strength and tone No spasticity or extrapyramidal symptoms Normal gait and station Mental Status Examination Appearance: Young White Male, evaluated at bedside, no acute distress, fair grooming and hygiene Attitude: Alert and cooperative Eye Contact: Good Psychomotor Activity: No agitation or retardation Orientation: Fully oriented to person, place, and time Mood/Affect: Anxious mood with congruent anxious affect Speech: Normal rate, tone, and volume Cognition: Fair attention; intact recent and remote memory Thought Process: Logical, coherent, linear Thought Content: No hallucinations, delusions, or homicidal ideation Insight/Judgment: Fair History of Present Illness The patient is a 29-year-old single Male who currently llives in a sober and unemployed. He has documented a psychiatric history significant for Generalized Anxiety Disorder and Major Depressive Disorder (MDD. History of opioid use. History of 5150 admitted to the medical floor. . He denied SI, HI, AVH, or psychotic symptoms. he was calm, cooperative, and psychiatrically stable throughout the evaluation, with no evidence of acute decompensation. Legal: Voluntary Diagnosis: Psychiatric: Depressive Disorder Medical: None Plan: Review and reinforce safety plan, coping strategies, and crisis resources [facility] Start Seroquel 100mg po qhs # 15. Risks and benefits were discussed with the pt. Refer for outpatient psychiatric follow-up for continued care. At this time, the patient is psychiatrically stable and appropriate for discharge, with no acute safety concerns identified. Case was discussed with the RN, Awaiting resident call back. SOUMYA ALEXANDER MD May 23, 2025 14:13 DICTATED BY:SOUMYA ALEXANDER MD DICTATED DATE/TIME:05/23/251412 ELECTRONICALLY SIGNED BY:SOUMYA ALEXANDER MD 05/23/251412 ELECTRONICALLY CO-SIGNED BY: Operations or Procedures [place] [id number] Ph: [phone] DIAGNOSTIC IMAGING Diagnostic Imaging Report : [id number] Signed PATIENT: ONIEL SWEENYE ACCT: [id number] UNIT: [id number] : 1995 [facility] [place] AGE / SEX: 29 / M ADM STATUS: ADM IN SERVICE [id number] ORDERING PHYSICIAN: GRIFFIN BENNETT RESIDENT PROCEDURE(s): CXR1 - CHEST XRAY 1 VIEW REASON: r/o lung disease ORDER NUMBER(s): [id number], ACCESSION NUMBER(s): [id number] CHEST RADIOGRAPH INDICATION: r/o lung disease TECHNIQUE: Single frontal view of the chest was obtained COMPARISON: None FINDINGS: Lines and Tubes: None Lungs: Clear Pleura: No effusion. No pneumothorax. Cardiomediastinal contours: Unremarkable Bones: Unremarkable IMPRESSION: 1. No acute disease. ATED BY: THADDEUS REEVES MD DICTATED DATE/TIME: 05/23/2536 SIGNED BY: THADDEUS REEVES MD SIGNED DATE/TIME: 05/23/2536 CC: Condition at Discharge: Stable Final Diagnosis/Problems List #Acute Opiate withdrawal likely fentanyl #Chronic Poly-subtance Abuse #Acute Generalized intractable body aches due to above Discharge Disposition: Home Discharge Instruct/Medications Diet: Regular Activity: No Restrictions, As Tolerated Follow Up/Referral: [place] [facility] PCP Rehab/sober house as resources provided Medications: As above Scheduled Ergocalciferol (Vitamin D 90579 Unit), 50,000 UNIT PO QWEEKLY Ibuprofen (Ibuprofen), 1 TAB PO Q6HPRN Pantoprazole Sodium Sesquihydr (Pantoprazole Sodium), 40 MG PO DAILY Quetiapine Fumerate (Quetiapine Fumarate), 100 MG PO qhs Discharge Statement: "Patient was advised to return to the ER or call 911 if any headaches, dizziness, shortness of breath, chest pain, abdominal pain, bleeding, fevers, or worsening of medical condition. Patient was counseled about treatment plan, medications, possible side effects, patientverbalized understanding. All questions were answered to the best of my ability. This discharge took greater then 30 minutes in planning, reviewing documentation, counseling the patient, and discussing with other team members." ASSESSMENT ASSESSMENT Assessment #Acute Opiate withdrawal likely fentanyl #Chronic Poly-subtance Abuse #Acute Generalized intractable body aches due to above Visit Coding STANDARD RES Billing Provider: GLENDY GUIDO MD Date of Service if different f: May 24, 2025 Common Visit Codes: 45447-[id number] INP/OBS CARE(HIGH), 44755-TVZ/OBS DISCH DAY >30min VERA VARGHESE RESIDENT May 24, 2025 11:39
[2025-05-24] MEDS ORDERED: QUET100T47 PO (11:40)
[2025-05-24] MEDS ORDERED: ERGO1CAP23 PO (11:42)
[2025-05-25] MEDS ORDERED: PANTOPRAZOLE 40 MG TAB PO SCH (06:00)
== END 2025-05-24 13:54 | disposition home or self-care (01) | DRG 773 ==
LOC: ER 20:41 → OVERFLOW 23:29 → CENTRAL 05-23 02:26
PROVIDERS: ADMIT Student in an Organized Health Care Education/Training Program; ATTEND Student in an Organized Health Care Education/Training Program
DX: F11.23 Opioid dependence with withdrawal (principal); D72.829 Elevated white blood cell count, unspecified; F32.9 Major depressive disorder, single episode, unspecified; J45.909 Unspecified asthma, uncomplicated; Z20.822 Contact with and (suspected) exposure to COVID-19; F41.1 Generalized anxiety disorder
CPT/HCPCS: 36415; 71045; 80048; 80053; 80307; 80320; 81001; 82306; 82550; 82607; 83036; 83735; 84443; 84484; 85025; 85610; 85730; 86803; 87340; 87426; 87804; 93005; G0378; J1885